=== PATIENT | female | born 1955 | race Caucasian/White ===

== ENCOUNTER 2018-09-13 17:05 | Observation (INO) ==
[2018-09-13] MEDS ORDERED: SODIUM CHLORIDE 0.9% INJ PRN (17:42)
[2018-09-13] MEDS ORDERED: NS 1,000 ML IV ONE (17:42)
[2018-09-13] MEDS ORDERED: TYLENOL PO PRN (17:42)
[2018-09-13] MEDS ORDERED: PHENERGAN IV PRN (17:42)
[2018-09-13 18:38] LABS: HEMATOCRIT 36.5 % (37.0-47.0); MCH 30.9 PG (27-31); MCHC 32.9 g/dL (33-37); MCV 94.1 FL (81-99); MPV 11.1 FL (7.4-10.4); RBC 3.88 XMIL (4.2-5.4); RDW 12.2 % (11.5-14.5); WBC 5.03 X1000 (4.8-10.8)
[2018-09-13] MEDS: NS 1,000 ML IV SCH (19:08)
[2018-09-13 19:17] LABS: AGAP 13; ALB/GLOB RATIO 1.2; ALKALINE PHOSPHATASE 67 U/L (32-104); AMYLASE 46 U/L (20-200); BUN 10 mg/dL (8-22); CALCIUM 9.1 mg/dL (8.8-10.2); CHLORIDE 99 mmol/L (98-107); COSMO 274; CREATININE 0.8 mg/dL (0.5-0.9); ESTIMATED GFR > 60; GLUCOSE 86 mg/dL (70-104); GOT 25 U/L (10-30); GPT 13 U/L (10-36); LIPASE 27 U/L (13-60); POTASSIUM 3.4 mmol/L (3.5-5.1); SODIUM 138 mmol/L (136-145); TCO2 26 mmol/L (25-35); TOTAL BILIRUBIN 0.28 mg/dL (0.20-1.00); TOTAL PROTEIN 7.3 g/dL (6.3-8.3)
--- NOTE | 2018-09-13 19:58 | HISTORY AND PHYSICAL ---
Mrs. Alexa Ackerman is a 62-year-old lady who I recently saw in the office on 09/08/2018 and treated for acute diverticulitis with a combination of oral Cipro and Flagyl. Her left lower quadrant abdominal pain has improved significantly. Unfortunately she continues with persistent nausea and dry heaves. She has had a very poor p.o. intake over the past several days. She is further with complaint of mild right upper quadrant abdominal tenderness in association with nausea, attempting to eat exacerbates the nausea. She has not seen any pale yellow or green bowel movements but did note that her urine had an orange appearance to it. She has never had a cholecystectomy. She reported that she felt dizzy and lightheaded with changes of position. Her blood pressure sitting was 145/80, her blood pressure standing was 125/80. PAST MEDICAL HISTORY: Migraine headaches. PAST SURGICAL HISTORY: Repair of a fractured left femur with subsequent removal of hardware. ALLERGIES: No known drug allergies. FAMILY HISTORY: Her father at the age of 65. He had ischemic heart disease status post MT. Her mother at the age of 84 from complications of O2 dependent COPD. SOCIAL HISTORY: She is a former smoker. She does not consume alcoholic beverages. She is and lives with her spouse. REVIEW OF SYSTEMS: She has lost 1 pound since her last visit.HEENT: No loss of visual or auditory acuity. CV: No chest pain, palpitations or anginal equivalents. Pulmonary: No shortness of breath, PND, orthopnea. GI: See HPI. Endocrine: No polyuria, no polydipsia. Skin: No easy bruisability. : No leakage of urine with coughing or laughing. Neuro: She has a history of migraines headaches. Psychiatric: No history of depression. This is an acutely ill-appearing 62-year-old lady no apparent distress. BP 145/80 sitting, 125/80 standing, pulse 78, weight 141 pounds, O2 saturation 98%. HEENT: Fundi with sharp discs and vessels. Pupils equal, round, reactive to light. Extraocular eye movements intact. TMs without bullae. Neck: Supple. No masses, JVD or bruits. CV: Regular rate and rhythm. Lungs: Clear. Abdomen: Mild right upper quadrant and epigastric tenderness to deep palpation. No rebound or guarding. She has good bowel sounds. Extremities: Without edema. Skin: No palpable purpura. Breasts/RECORDS COORDINATOR/Rectal: Deferred. Neuro: Nonfocal. ASSESSMENT AND PLAN: 1. Right upper quadrant abdominal pain in association with persistent nausea and dry heaves. I am going to admit her to [facility]. I will rehydrate her with normal saline. I will check a CBC, CMP, amylase and lipase. We will check an ultrasound of the gallbladder in the morning. We will treat her nausea and vomiting on a p.r.n. basis with Phenergan. 2. Volume depletion. She has orthostatic hypotension. I will bolus her with a liter of normal saline wide open then reduce the fluids to 100 mL per hour. We will check blood pressures sitting and standing every shift. Given her failure of outpatient therapy and clinical presentation, I believe that admission to the hospital is reasonable. I anticipate that she will be in the hospital for at least 1 midnight and I will therefore place her in outpatient status with observation services. cc: Jean Chang MD
[2018-09-14] MEDS: NS 1,000 ML IV SCH ×2 (06:08→21:10)
--- NOTE | 2018-09-14 08:16 | Diag Imaging Result Doc PS360 ---
EXAM: US GB < RUQ (LIMITED) INDICATION: RUQ PAIN AND NAUSEA COMPARISON: None. FINDINGS: The gallbladder appears normal with no stones, wall thickening, or pericholecystic fluid. The common bile duct is normal in diameter. Sonographic Ashley's sign was reported to be negative. The liver is grossly unremarkable. Portal venous flow is hepatopetal. The visualized pancreas is unremarkable. The aorta and IVC are grossly unremarkable. The right kidney is grossly unremarkable. IMPRESSION: Essentially unremarkable right upper quadrant abdominal ultrasound. Electronically signed by Humberto Wing 09/14/2018 8:13 AM
--- NOTE | 2018-09-14 13:33 | PROGRESS NOTE ---
DATE: 09/14/2018 SUBJECTIVE: Ms. Ackerman continues with mild right upper quadrant pain and nausea. She reports that her nausea is better. She has not had any active vomiting. An ultrasound of the gallbladder was unremarkable. Her appetite is still poor. OBJECTIVE: Vital Signs: Temperature 97.6 degrees, pulse 60, respirations 16, BP 120/65. CV: Regular rate and rhythm. Lungs: Clear. Abdomen: Mild right upper quadrant tenderness to deep palpation. No rebound or guarding. ASSESSMENT AND PLAN: 1. Right upper quadrant abdominal pain with nausea. Her amylase and lipase were within normal limits. There was no evidence of pancreatitis. She is not really having refractory reflux- type symptoms or dysphagia. There was no significant anemia. I am still concerned that she has gallbladder dysfunction. We will proceed with a HIDA scan with cholecystokinin today. 2. Volume depletion. We will continue normal saline at 100 mL/hour. cc: Jean Chang MD
--- NOTE | 2018-09-14 16:38 | Diag Imaging Result Doc PS360 ---
HIDA SCAN W/ EJECTION FRACTION - 09/14/2018 INDICATION: RUQ ABDOMINAL PAIN AND NAUSEA COMPARISON: Ultrasound from earlier 09/14/2018 FINDINGS: 5.2 millicuries of Choletec was administered. There is normal uptake and clearance by the liver. There is normal excretion into the gallbladder and small bowel. A fatty meal was given. The gallbladder ejection fraction is 67%. IMPRESSION: Negative exam. An abnormally low ejection fraction (less than 35%) can be present in patients without gallbladder dyskinesis or chronic cholelithiasis to have other medical conditions. These include but are not limited to, patients with diabetic mellitus, irritable bowel syndrome, , gastroenteritis. peptic ulcer disease, and patients receiving morphine or nifedipine. Electronically signed by Johnathan Leong 09/14/2018 4:36 PM
--- NOTE | 2018-09-14 18:12 | PROGRESS NOTE ---
DATE: 09/14/2018 SUBJECTIVE: Mrs. Ackerman continues with persistent nausea although the nausea is less intense as compared to admission. She became nauseated when she drank the Ensure during the HIDA scan earlier today. Her HIDA scan demonstrated normal gallbladder function with an EF of 67%. An ultrasound of the abdomen was unremarkable. She continues with nausea and diminished appetite. She denies any reflux,sour brash, dysphagia, melena, or hematochezia. She had recently been on oral antibiotics for acute diverticulitis. She has no previous history of gastroparesis or underlying diabetes. OBJECTIVE: vital signs: She is afebrile. Vital signs are stable. CARDIOVASCULAR: Regular rate and rhythm. Lungs: Clear. Abdomen: Mild right upper quadrant tenderness to deep palpation. No rebound or guarding. ASSESSMENT AND PLAN: Persistent nausea. The etiology of the nausea is unclear. There was no evidence of pancreatitis. Gallbladder function is within normal limits. Certainly, there is the potential for gastritis or ulcer disease. I will continue pantoprazole 40 mg daily. I will consult Dr. Checo Perez for consideration of an EGD. cc: Jean Chang MD [facility]
[2018-09-14] MEDS: PROTONIX PO SCH (18:47)
[2018-09-15] MEDS: NS 1,000 ML IV SCH (05:58)
[2018-09-15] MEDS: PROTONIX PO SCH ×2 (05:58→06:11)
[2018-09-15 07:14] VITALS: BP 99/64
--- NOTE | 2018-09-15 11:24 | GASTROENTEROLOGY CONSULTATION ---
DATE: 09/15/2018 REASON FOR CONSULTATION: Nausea, vomiting, and diarrhea. HISTORY OF PRESENT ILLNESS: Ms. Alexa Ackerman is a 62-year-old woman with past medical history of arthritis, she takes ibuprofen at home, who presented on 09/13 with severe nausea, fatigue, periumbilical abdominal pain. 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 She has a history of developing infections symptoms after returning from her mission trips in the past. This time, she developed some diarrhea, which she self-treated with Imodium that helped. About a couple of weeks ago, she started developing subjective fever, nausea, severe fatigue. She was treated empirically with a course of Cipro and Flagyl. Her symptoms did improve for a period of time until 2 days ago when she noted having severe nausea with vomiting and fatigue. She was seen by her PCP, who recommended inpatient admission for IV fluids and further workup. Over the last couple of days, she reports having severe nausea with nonbloody nonbilious emesis. Her diarrhea has essentially tapered off. She also has some abdominal discomfort. She was treated empirically with antiemetics and PPI once daily. This morning, she says she is 100 times better. She does not have any nausea currently or abdominal discomfort. Last evening, she was able to tolerate a GI soft diet without vomiting. She admits that while she was in [place] she ate local cuisine prepared by people there. She did drink bottled water the whole time, however, there was some concern that the bottles they were using were recycled. She denies any other exposures. Of note early this month, she was started on high-dose ibuprofen 800 mg, which she has been taking once a day. No family history of intestinal cancers. Apparently, her mother has a history of diverticulitis. REVIEW OF SYSTEMS: As per HPI, otherwise 12-point review of systems is negative. PAST MEDICAL HISTORY: Arthritis. PAST SURGICAL HISTORY: Repair of fractured left femur. MEDICATIONS: Imodium, ibuprofen. ALLERGIES: No known drug allergies. FAMILY HISTORY: No family history of GI malignancies. Mother has a history of diverticulitis. SOCIAL HISTORY: She is a former smoker. She quit in 1985. Rare alcohol use. No drug use. PHYSICAL EXAMINATION: Vital Signs: Temperature is 98.3, heart rate 76, respiratory rate 16, blood pressure 99/64, O2 saturation 98% on room air. Generally: The patient is awake, alert, oriented, no acute distress. HEENT: Sclerae anicteric. Moist mucous membranes. Extraocular motor intact. Neck: Supple. No JVD or lymphadenopathy. Cardiac: Regular rate and rhythm. No murmurs, rubs, or gallops. Lungs: Clear to auscultation bilaterally. No wheezing. Abdomen: Soft, nontender, nondistended. Normoactive bowel sounds. No rebound or guarding. Extremities: No clubbing, cyanosis, or edema. Neurologic: Nonfocal. LABORATORY: White count of 5.0, hemoglobin 12.0, platelets of 265. CMP notable for potassium of 3.4. Abdominal ultrasound on 09/14 was unremarkable. HIDA scan also was normal. ASSESSMENT AND PLAN: Ms. Alexa Ackerman is a 62-year-old woman with a history of arthritis on nonsteroidal antiinflammatory drug use and recent travel to [place], who presents with infectious symptoms including nausea, vomiting, and diarrhea that has improved significantly since admission and after receiving intravenous fluids and initiation of proton pump inhibitor therapy as well as antiemetics. Her BMP, CMP are unremarkable except for some mild hypokalemia likely from GI losses. She has not ever had an EGD or colonoscopy in the past. She does get yearly stool card testing by her PCP. No family history of GI malignancies. The patient is not interested in endoscopic evaluation at this time. She may resume a diet as tolerated. I would minimize NSAIDs to avoid abdominal discomfort, peptic ulcer disease, gastritis, duodenitis. I have given her my card. If she is to develop recurrent symptoms, she was instructed to schedule a followup appointment for further evaluation. The plan was discussed with the patient and Dr. Chang. Thank you for this consult. I will sign off. Please call with any questions or concerns. cc: Jean Chang MD
== END 2018-09-15 11:54 | disposition home or self-care (01) ==
LOC: DIRADM → 3N 17:05
PROVIDERS: ADMIT Internal Medicine; ATTEND Internal Medicine
CPT/HCPCS: 76705; 78227; 80053; 82150; 83690; 85027; 87324; 87449; A9270; A9537; J2550; J7030